=== PATIENT | male | born 1945 | race Caucasian/White ===

== ENCOUNTER → 2016-09-11 | Outpatient (CLI) | payer BC ==
[~2016-09-11] VITALS: Ht 162.6 cm; Wt 81.7 kg
[~2016-09-11] MED LIST: ATOR-22 PO; METO50TA16 PO; TRIA37.5 PO
[2016-09-11 13:56] VITALS: BP 143/97; PULSE 71; BMI 31.1
[2016-09-11 13:57] VITALS: BP 168/79; PULSE 84; Ht 162.6 cm; Wt 81.7 kg
== END | disposition home or self-care (01) ==
LOC: C.NEUR 12:53
PROVIDERS: ATTEND Internal Medicine Pulmonary Disease
DX: G47.33 Obstructive sleep apnea (adult) (pediatric) (principal); R51 Headache; M54.2 Cervicalgia

== ENCOUNTER → 2016-09-19 | Outpatient (CLI) | payer BC ==
--- NOTE | 2016-09-19 13:55 | DIAGNOSTIC IMAGING REPORT ---
C-SPINE ROUTINE 4 OR 5 VIEWS CLINICAL HISTORY: Neck pain. COMPARISON STUDY: No previous studies for comparison. FINDINGS: Visualization of the cervical spine is adequate. Alignment is anatomic. Vertebral body heights are maintained. There is no fracture or suspicious lesion. Mild multilevel degenerative disc disease and facet arthrosis is present. There is minimal multilevel bony neural foraminal narrowing. IMPRESSION: 1. No cervical spine fracture or subluxation. 2. Mild multilevel degenerative disc disease and facet arthrosis of the cervical spine. Electronically signed by: Christopher Patton M.D. 09/19/2016 1:53 PM Dictated Date/Time: 09/19/2016 1:52 PM
== END | disposition home or self-care (01) ==
LOC: C.RAD 13:03
PROVIDERS: ATTEND Internal Medicine
DX: M54.2 Cervicalgia (principal)

== ENCOUNTER → 2016-10-08 | Outpatient (CLI) | payer BC ==
[2016-10-08 14:10] LABS: BLOOD UREA NITROGEN 22 mg/dl (7-18); BUN/CREATININE RATIO 12.8 (10-20); CARBON DIOXIDE 27 mmol/L (21-32); CHLORIDE 106 mmol/L (98-107); CHOLESTEROL 154 mg/dl (0-200); GLUCOSE 90 mg/dl (70-99); POTASSIUM 4.3 mmol/L (3.5-5.1); SODIUM 143 mmol/L (136-145)
[2016-10-08 14:13] LABS: CHOLESTEROL/HDL RATIO 3.2; HDL CHOLESTEROL 48 mg/dl; TRIGLYCERIDES 116 mg/dl (0-150); VERY LOW DENSITY LIPOPROT CALC 23 mg/dl
== END | disposition home or self-care (01) ==
LOC: C.LABSPEC 12:44
PROVIDERS: ATTEND Internal Medicine
DX: I10 Essential (primary) hypertension (principal); E78.5 Hyperlipidemia, unspecified

== ENCOUNTER → 2016-10-22 | Outpatient (CLI) | payer BC | END | disposition home or self-care (01) | LOC: C.LABSPEC 12:21 | PROVIDERS: ATTEND Internal Medicine | DX: Z12.11 Encounter for screening for malignant neoplasm of colon (principal) ==

== ENCOUNTER → 2016-12-04 | Outpatient (CLI) | payer BC ==
[~2016-12-04] VITALS: Ht 162.6 cm; Wt 82.7 kg
[2016-12-04 13:23] VITALS: BP 146/75; PULSE 71; Ht 162.6 cm; Wt 82.7 kg
== END | disposition home or self-care (01) ==
LOC: C.NEUR 12:45
PROVIDERS: ATTEND Internal Medicine Pulmonary Disease
DX: G47.33 Obstructive sleep apnea (adult) (pediatric) (principal); M47.812 Spondylosis without myelopathy or radiculopathy, cervical region

== ENCOUNTER → 2017-04-09 | Outpatient (CLI) | payer BC ==
[2017-04-09 15:33] LABS: BLOOD UREA NITROGEN 21 mg/dl (7-18); BUN/CREATININE RATIO 15.1 (10-20); CALCIUM 9.5 mg/dl (8.5-10.1); CARBON DIOXIDE 30 mmol/L (21-32); CHLORIDE 107 mmol/L (98-107); GLUCOSE 91 mg/dl (70-99); POTASSIUM 4.7 mmol/L (3.5-5.1); SODIUM 140 mmol/L (136-145)
[2017-04-09 15:38] LABS: CHOLESTEROL 143 mg/dl (0-200); CHOLESTEROL/HDL RATIO 3.3; HDL CHOLESTEROL 43 mg/dl; TRIGLYCERIDES 116 mg/dl (0-150); VERY LOW DENSITY LIPOPROT CALC 23 mg/dl
== END | disposition home or self-care (01) ==
LOC: C.LABSPEC 12:19
PROVIDERS: ATTEND Internal Medicine
DX: I12.9 Hypertensive chronic kidney disease with stage 1 through stage 4 chronic kidney disease, or unspecified chronic kidney disease (principal); N18.9 Chronic kidney disease, unspecified; E78.5 Hyperlipidemia, unspecified

== ENCOUNTER → 2017-06-04 | Outpatient (CLI) | payer BC ==
[~2017-06-04] VITALS: Ht 162.6 cm; Wt 79.9 kg
[2017-06-04 14:15] VITALS: BP 155/76; PULSE 69; Ht 162.6 cm; Wt 79.9 kg
== END | disposition home or self-care (01) ==
LOC: C.NEUR 12:12
PROVIDERS: ATTEND Internal Medicine Pulmonary Disease
DX: G47.33 Obstructive sleep apnea (adult) (pediatric) (principal); I10 Essential (primary) hypertension

== ENCOUNTER → 2017-10-01 | Outpatient (CLI) | payer BC | END | disposition home or self-care (01) | LOC: C.PATHSPEC 16:35 | PROVIDERS: ATTEND Physician Assistant | DX: L82.1 Other seborrheic keratosis (principal) ==

== ENCOUNTER → 2017-10-14 | Outpatient (CLI) | payer BC ==
[2017-10-14 13:35] LABS: BASO ABS # 0.08 K/uL (0-0.2); EOS % 3.7 %; HEMATOCRIT 41.7 % (42-52); HEMOGLOBIN 13.4 g/dL (14.0-18.0); IG# 0.02 K/uL (0.00-0.02); LYMPH ABS # 2.26 K/uL (1.2-3.4); MEAN CELL VOLUME 87.1 fL (80-100); MEAN CORPUSCULAR HGB CONC 32.1 g/dl (32-36); MEAN PLATELET VOLUME 12.1 fL (7.4-10.4); MONO % 9.7 %; MONO ABS # 0.78 K/uL (0.11-0.59); NEUT % 57.4 %; NEUT ABS # 4.63 K/uL (1.4-6.5); PLATELET COUNT 246 K/uL (130-400); RED CELL DISTRIBUTION WIDTH CV 13.4 % (11.5-14.5); RED CELL DISTRIBUTION WIDTH SD 42.5 fL (36.4-46.3); WHITE BLOOD COUNT 8.07 K/uL (4.8-10.8)
[2017-10-14 14:02] LABS: ALBUMIN 3.8 gm/dl (3.4-5.0); ALT/SGPT 18 U/L (12-78); AST/SGOT 15 U/L (15-37); BLOOD UREA NITROGEN 19 mg/dl (7-18); CALCIUM 9.4 mg/dl (8.5-10.1); CARBON DIOXIDE 28 mmol/L (21-32); CHOLESTEROL 139 mg/dl (0-200); CREATININE 1.59 mg/dl (0.60-1.40); GLUCOSE 92 mg/dl (70-99); POTASSIUM 4.3 mmol/L (3.5-5.1); SODIUM 139 mmol/L (136-145)
[2017-10-14 14:06] LABS: ALKALINE PHOSPHATASE 82 U/L (45-117); LDL CHOLESTEROL (DIRECT) 91 mg/dl; TOTAL PROTEIN 8.1 gm/dl (6.4-8.2)
== END | disposition home or self-care (01) ==
LOC: C.LABSPEC 12:53
PROVIDERS: ATTEND Internal Medicine
DX: I12.9 Hypertensive chronic kidney disease with stage 1 through stage 4 chronic kidney disease, or unspecified chronic kidney disease (principal); E78.5 Hyperlipidemia, unspecified; N18.9 Chronic kidney disease, unspecified; I49.3 Ventricular premature depolarization

== ENCOUNTER → 2017-10-25 | Outpatient (CLI) | payer BC ==
--- NOTE | 2017-10-25 15:46 | EXERCISE STRESS ECHO ---
*NOTICE TO RECEIVING REPUBLICAN AGENCY This information is strictly Confidential and protected under [place] law. [place] law prohibits you from making any further disclosure of this information unless further disclosure is expressly permitted by the written consent of the person to whom it pertains or is authorized by law. A general authorization for the release of medical or other information is not sufficient for this purpose. Hospital accepts no responsibility if the information is made available to any other person, INCLUDING THE PATIENT. Interpretation Summary * Name: Marline ABBASI Study Date: 10/25/2017 11:29 AM BP: 173/86 mmHg * Patient Location: [facility] HR: 74 * : 1945 (M/d/yyyy) Gender: Male Height: 64 in * Age: 72 yrs Ethnicity: CA Weight: 177 lb * Ordering Physician: Elder Chung * Referring Physician: Elder Chung * Performed By: Jacqueline Burns RDCS * * Reason For Study: Abnormal EKG, chest pain * BSA: 1.9 m2 * -- Conclusions -- * Stress Echo: * 1. Negative stress echo for ischemia at 96 % MPHR. * 2. Negative exercise ECG for ischemia at 96 % MPHR. * 3. Hypertensive blood pressure response to exercise. * 4. QRS transiently became wider following exercise. * 5. There was a brief run of wide complex tachycardia which appeared to be SVT which spontaneously converted. This occurred in recovery. * 6. Study terminated due to hypertension. No chest pain reported. * 7. Exercised 3 minutes and 30 seconds on Sreedhar protocol as exercise was terminated due to hypertension. * ECHO: * 1. Normal left ventricular size and systolic function. EF 60-65%. No regional wall motion abnormalities. No left ventricular hypertrophy. Type 1 diastolic dysfunction. * 2. No significant valvular abnormalities. Procedure Details * ECHOEX, CPT #[id number] * ECHO DOPPLER, CPT #[id number] * ECHO COLOR FLOW, CPT #[id number] Left Ventricle * The left ventricle is normal in size. * There is normal left ventricular wall thickness. * Ejection Fraction = 60-65%. * Resting wall motion: Normal. Stress wall motion: Appropriate increase in Left ventricular systolic function and decrease in cavity size. No stress induced segmental wall motion abnormalities. * The left ventricular ejection fraction increases normally with stress. The left ventricular end-systolic cavity size reduces post-stress (normal response). The left ventricular wall motion with stress is normal. Right Ventricle * The right ventricle is normal in size and function. * The right ventricular systolic function is normal as assessed by tricuspid annular plane systolic excursion (TAPSE) (normal >1.5 cm). Atria * The left atrial size is normal. * Right atrial size is normal. * There is no evidence of atrial septal defect, but resolution does not allow assessment for a patent foramen ovale. Mitral Valve * The mitral valve is grossly normal. * There is no mitral valve stenosis. * There is trace mitral regurgitation. Tricuspid Valve * The tricuspid valve is not well visualized, but is grossly normal. * There is no tricuspid stenosis. * There is mild tricuspid regurgitation. Aortic Valve * The aortic valve is normal in structure and function. * No hemodynamically significant valvular aortic stenosis. * No aortic regurgitation is present. Pulmonic Valve * The pulmonary valve is inadequately visualized, but the Doppler data is adequate for interpretation. * There is no significant pulmonary regurgitation. Great Vessels * The aortic root is normal size. * Ascending aorta of normal dimension * Normal pulmonary venous flow pattern. Normal IVC size and inspiratory collapse. Pericardium * There is no pericardial effusion. Stress Parameters * Sinus rhythm at 73 bpm. Lateral T-wave abnormality. * There were no significant ST changes. QRS transiently became wider. There was a brief run of wide complex tachycardia which appears to be SVT with aberrant conduction. * The stress portion of this study was personally supervised by the undersigned interpreting physician. * Rest heart rate was '74' BPM. * Rest blood pressure was '173/86' * Maximum heart rate achieved was 141 bpm. * Maximum heart rate was 96 % of maximum age-predicted heart rate. * Maximum blood pressure was '216/80' * Total exercise time was '3:30' * Maximum exercise MET level achieved was '5.20' METS * Maximum treadmill speed was '2.50' miles per hour. * Maximum treadmill elevation was '12.00'% grade. * Exercise was terminated due to 'Hypertension' * Exercise-induced hypertension. MMode 2D Measurements and Calculations IVSd 1.1 cm LVIDd 4.8 cm LVIDs 3.3 cm LVPWd 0.99 cm IVS/LVPW 1.1 FS 31.2 % EDV(Teich) 107.8 ml ESV(Teich) 44.4 ml EF(Teich) 58.8 % EDV(cubed) 110.9 ml ESV(cubed) 36.2 ml EF(cubed) 67.4 % LV mass(C)d 180.6 grams LV mass(C)dI 97.2 grams/m\S\2 SV(Teich) 63.4 ml SI(Teich) 34.1 ml/m\S\2 SV(cubed) 74.8 ml SI(cubed) 40.3 ml/m\S\2 Ao root diam 3.0 cm Ao root area 7.1 cm\S\2 ACS 1.6 cm LA dimension 3.4 cm asc Aorta Diam 3.0 cm LA/Ao 1.1 LVOT diam 2.0 cm LVOT area 3.2 cm\S\2 LVAd ap4 31.0 cm\S\2 LVLd ap4 8.5 cm EDV(MOD-sp4) 91.4 ml EDV(sp4-el) 96.0 ml LVAs ap4 17.1 cm\S\2 LVLs ap4 7.0 cm ESV(MOD-sp4) 35.7 ml ESV(sp4-el) 35.2 ml EF(MOD-sp4) 60.9 % EF(sp4-el) 63.3 % LVAd ap2 27.3 cm\S\2 LVLd ap2 8.1 cm EDV(MOD-sp2) 74.8 ml EDV(sp2-el) 77.9 ml LVAs ap2 15.5 cm\S\2 LVLs ap2 7.0 cm ESV(MOD-sp2) 28.0 ml ESV(sp2-el) 29.1 ml EF(MOD-sp2) 62.6 % EF(sp2-el) 62.6 % LVLd %diff -4.58 % EDV(MOD-bp) 85.0 ml LVLs %diff -0.45 % ESV(MOD-bp) 31.2 ml EF(MOD-bp) 63.3 % SV(MOD-sp4) 55.7 ml SI(MOD-sp4) 30.0 ml/m\S\2 SV(MOD-sp2) 46.8 ml SI(MOD-sp2) 25.2 ml/m\S\2 SV(MOD-bp) 53.8 ml SI(MOD-bp) 29.0 ml/m\S\2 SV(sp4-el) 60.7 ml SI(sp4-el) 32.7 ml/m\S\2 SV(sp2-el) 48.7 ml SI(sp2-el) 26.3 ml/m\S\2 Doppler Measurements and Calculations MV E max nasir 68.2 cm/sec MV A max nasir 77.9 cm/sec MV E/A 0.88 MV dec time 0.17 sec Ao V2 max 128.6 cm/sec Ao max PG 6.6 mmHg Ao max PG (full) 2.9 mmHg JOLANTA(V,A) 2.4 cm\S\2 JOLANTA(V,D) 2.4 cm\S\2 LV V1 max PG 3.8 mmHg LV V1 max 96.8 cm/sec PA V2 max 110.4 cm/sec PA max PG 4.9 mmHg PA acc slope 945.5 cm/sec\S\2 PA acc time 0.08 sec TR max nasir 228.7 cm/sec RVSP(TR) 24.0 mmHg RAP systole 3.0 mmHg PA pr(Accel) 43.6 mmHg
== END | disposition home or self-care (01) ==
LOC: C.CPL 11:10
PROVIDERS: ATTEND Internal Medicine
DX: R07.9 Chest pain, unspecified (principal); R94.31 Abnormal electrocardiogram [ECG] [EKG]

== ENCOUNTER → 2017-11-06 | Outpatient (CLI) | payer BC ==
[2017-11-13 14:44] LABS: FECAL OCCULT BLOOD #1 NEGATIVE (NEGATIVE); FECAL OCCULT BLOOD #2 NEGATIVE (NEGATIVE); FECAL OCCULT BLOOD #3 NEGATIVE (NEGATIVE)
== END | disposition home or self-care (01) ==
LOC: C.LABSPEC 14:26
PROVIDERS: ATTEND Internal Medicine
DX: Z12.11 Encounter for screening for malignant neoplasm of colon (principal)

== ENCOUNTER → 2018-04-14 | Outpatient (CLI) | payer BC ==
[2018-04-14 14:19] LABS: ALBUMIN 3.6 gm/dl (3.4-5.0); ALKALINE PHOSPHATASE 88 U/L (45-117); ALT/SGPT 18 U/L (12-78); AST/SGOT 19 U/L (15-37); BLOOD UREA NITROGEN 22 mg/dl (7-18); CARBON DIOXIDE 27 mmol/L (21-32); CHOLESTEROL 152 mg/dl (0-200); CREATININE 1.54 mg/dl (0.60-1.40); GLUCOSE 86 mg/dl (70-99); LDL CHOLESTEROL (DIRECT) 90 mg/dl; PHOSPHORUS 3.1 mg/dl (2.5-4.9); POTASSIUM 4.1 mmol/L (3.5-5.1); SODIUM 138 mmol/L (136-145); TOTAL PROTEIN 7.8 gm/dl (6.4-8.2)
[2018-04-14 18:57] LABS: BASO % 0.9 %; BASO ABS # 0.07 K/uL (0-0.2); EOS % 3.7 %; EOS ABS # 0.28 K/uL (0-0.5); HEMATOCRIT 39.9 % (42-52); HEMOGLOBIN 12.7 g/dL (14.0-18.0); IG# 0.01 K/uL (0.00-0.02); LYMPH % 23.4 %; LYMPH ABS # 1.76 K/uL (1.2-3.4); MEAN CELL VOLUME 87.9 fL (80-100); MEAN CORPUSCULAR HGB CONC 31.8 g/dl (32-36); MONO % 9.7 %; MONO ABS # 0.73 K/uL (0.11-0.59); NEUT % 62.2 %; NEUT ABS # 4.67 K/uL (1.4-6.5); PLATELET COUNT 235 K/uL (130-400); RED CELL DISTRIBUTION WIDTH CV 13.6 % (11.5-14.5); RED CELL DISTRIBUTION WIDTH SD 43.1 fL (36.4-46.3); WHITE BLOOD COUNT 7.52 K/uL (4.8-10.8)
== END | disposition home or self-care (01) ==
LOC: C.LABSPEC 13:20
PROVIDERS: ATTEND Internal Medicine
DX: N18.9 Chronic kidney disease, unspecified (principal); I12.9 Hypertensive chronic kidney disease with stage 1 through stage 4 chronic kidney disease, or unspecified chronic kidney disease; E78.5 Hyperlipidemia, unspecified

== ENCOUNTER 2022-09-17 09:26 | Inpatient (IN) ==
--- NOTE | 2022-09-13 09:53 | PAT Medication Instructions ---
Medication Instructions Date of Service September 13, 2022 Home Medications amlodipine 5 mg tablet 5 mg PO QAM atorvastatin 20 mg tablet 20 mg PO HS cyanocobalamin (vitamin B-12) 1,000 mcg tablet 1,000 mcg PO QAM ascorbate calcium-bioflavonoid ER 1,000 mg-200 mg tab,extended release 1 tab PO QAM coenzyme Q10 100 mg capsule (Co Q-10) 100 mg PO QAM STOP taking 2 weeks before surgery (or as soon as possible if surgery is within 2 weeks) coenzyme Q10 100 mg capsule (Co Q-10) 100 mg PO QAM DO NOT take the morning of surgery cyanocobalamin (vitamin B-12) 1,000 mcg tablet 1,000 mcg PO QAM ascorbate calcium-bioflavonoid ER 1,000 mg-200 mg tab,extended release 1 tab PO QAM Take morning of surgery With a small sip of water, OTHERWISE NOTHING TO EAT OR DRINK AFTER MIDNIGHT: amlodipine 5 mg tablet 5 mg PO QAM Take evening before surgery atorvastatin 20 mg tablet 20 mg PO HS Other Notes If you have any questions please call us at [phone] or [phone] or [phone] or [phone]
--- NOTE | 2022-09-13 14:47 | Anesthesiology Consultation ---
Date of Service September 13, 2022 Assessment & Plan (1) Encounter for pre-operative examination: - COVID screening: Per assessment on 09/12: No known COVID-19 positive contacts or current COVID-19 related symptoms. Travel screen negative. Patient vaccinated. Pt requiring admission post-operatively. Plan for recheck with COVID Rand AM DOS due to possibility that patient may have a roommate. OR aware. Rand order placed. - S/P Right ankle ORIF (08/30/20): LMA#5 + PNB at [facility]. "in bigeminy PVCs and PVCs are non-perfusing per pulse ox- rate on pulse ox = 34.. 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 He has never taken any medication for this. At this point, given that he is 76 years old and has never had an arrhythmia with his WPW pattern, it is very unlikely that he will have 1 now. However, given that his blood pressure allows room for it and his frequent PVCs during his echocardiogram, I will have him start metoprolol succinate 25 mg at night.. I reviewed his past BMPs. It appears that he had stable chronic kidney disease with a creatinine of around 1.7 for at least 3 years. When he is through his surgery, we could further adjust his antihypertensive regimen.. He has an echocardiogram pending. He can achieve 4 METS. He has never had any concerning anginal symptoms. He appears euvolemic. He has no history of heart failure. He does not require further cardiac testing prior to his procedure. EKG was p erformed in the office today which shows normal sinus rhythm with WPW pattern and a wide QRS.. Using the NSQIP calculator, he is below average risk for cardiac complication, around 1%. I also discussed with him that his surgery is urgent and the risk of such a large aneurysm rupturing requires urgent intervention." Echo done 09/12/12 unremarkable. Chart Review Chart Review: Acceptable Risk for Surgery and Patient seen in Pre Admission Testing Teaching & Discussion Pre-Anesthesia Teaching/Discussion Notes: Instructed NPO after midnight before surgery,except medications with 15 cc of water. Medication instructions provided according to the PAT guidelines. History Surgery Operation Date: 09/17/22 11:00 Proposed Procedures p Percutaneous Endovascular Abdominal Aortic Aneurysm Repair (PEVAR) - Richard Morales MD Height/Weight Height: 5 ft 4 in Weight: 82.7 kg Allergies Allergy/AdvReac Type Severity Reaction Status Date / Time No Known Allergies Allergy Verified 09/12/22 14:43 Medications Home Medications Medication Instructions Recorded Confirmed Last Taken amlodipine 5 mg tablet 5 mg PO QAM #30 tabs 05/20/19 09/12/22 08/29/20 atorvastatin 20 mg tablet 20 mg PO HS 05/20/19 09/12/22 08/29/20 cyanocobalamin (vitamin B-12) 1,000 mcg PO QAM 05/20/19 09/12/22 08/29/20 1,000 mcg tablet ascorbate calcium-bioflavonoid ER 1 tab PO QAM 09/11/22 09/12/22 Unknown 1,000 mg-200 mg tab,extended release coenzyme Q10 100 mg capsule (Co 100 mg PO QAM 09/11/22 09/12/22 Unknown Q-10) metoprolol succinate 25 mg 25 mg PO DAILY 09/14/22 09/14/22 Unknown tablet,extended release 24 hr Past Medical History Medical History Aneurysm of abdominal aorta Infrarenal aortic aneurysm 74 mm per 09/11/22 CTA Chronic kidney disease Hearing deficit BL FOREMAN HTN (hypertension) Hyperlipemia Nocturnal hypoxemia Per records Sleep apnea CPAP (occasional) WPW (Viati-Jyelkibaa-Uvtxx syndrome) Noted on 05/2022 EKG, Follows with Dr. Land Exercise / Class Metabolic Activity III < 4 Walking/Shop/Light housework Past Family History Family History Mother Diabetes Other Cancer No family history of adverse response to anesthesia Past Surgical History Surgical History History of appendectomy removed at same time as gallbladder History of cataract surgery R/L History of cholecystectomy History of colonoscopy Past Anesthesia History No Hx of Anesthesia Complications and No Family Hx of Anesthesia Complications History of PONV No Hx of PONV and No Hx of Motion Sickness Social History Smoking Status: Former smoker tobacco type: cigarettes Do You Dip or Chew Tobacco: No Smoking End Date: Quit 35 years ago Hx Alcohol Use: No Hx Substance Use: No substance use type: does not use Review of Systems Patient denies chest pain, shortness of breath, dyspnea on exertion, fever, chills, cough, wheezing, palpitations. Physical Exam Vital Signs VITALS BP 15-88 P 69 TEMP 98.0 SP02 96%RA RESP 16 PHYSICAL Full cervical extension range of motion. Full TMJ range of motion. TMD 3 finger breaths Mallampati Score 3 Dentition: full dentures upper/lower Lungs: clear throughout to auscultation Cardiac: regular rate and rhythm, no murmurs noted Spine: normal Carotid arteries: negative bruit Extremities: no edema Lab Results Anesthesia Preop Results Results Anesthesia Widget: WBC 7.86 K/ul (4.8-10.8) 09/14/22 Hgb 12.0 g/dl (14.0-18.0) L 09/14/22 Hct 36.7 % (40.1-51.0) L 09/14/22 Plt 271 K/uL (130-400) 09/14/22 Na 138 mmol/L (136-145) 09/14/22 K 4.3 mmol/L (3.5-5.1) 09/14/22 Cl 103 mmol/L (98-107) 09/14/22 CO2 30 mmol/L (21-32) 09/14/22 BUN 21 mg/dl (6-23) 09/14/22 Creat 1.53 mg/dl (0.6-1.4) H 09/14/22 Glucose Level 92 mg/dl (70-99(Fasting)) 09/14/22 PT 10.7 Seconds (9.0-12.0) 09/14/22 PTT 35.6 Seconds (21.0-31.0) H 09/14/22 INR 1.0 (0.9-1.1) 09/14/22 Blood Type O Positive 09/14/22 Antibody Screen NEGATIVE 09/14/22 Testing Laboratory Results 08/22/22 SODIUM 144 POTASSIUM 4.1 CHLORIDE 108 CO2 30 BUN 21 CREATININE 1.65 GLUCOSE 104 Electrocardiogram Date: 09/12/22 NSR at 86bpm. WPW. LAFB. Prolonged QTc. NS STA. Chest X-Ray Date: 09/14/22 FINDINGS: Mild bilateral hilar prominence is similar to the prior study. Possible pulmonary arterial hypertension with cardiomegaly. Unchanged right hemidiaphragmatic elevation. No pneumothorax, large pleural effusion or lobar airspace consolidation. Mild interstitial coarsening appears chronic. Degenerative changes of the shoulders and spine. IMPRESSION: No acute process. Echocardiogram Date: 09/12/22 EF 55-60%. No RWMA. Grade I DD. Ventricular dyssynchrony is seen secondary to the patient's known preexcitation. Mild MR. Trce to mild TR. Other Testing CTA Abdomen/Pelvis (09/11/22) Infrarenal aortic aneurysm as above measuring 74 mm. A tiny, likely chronic dissection flap is noted in the superior aspect of this aneurysm. A linear focus of radiodensity is seen in the left neural thrombus of the aneurysm. There is evidence of scattered atherosclerotic calcifications of the abdominal aorta and its major branches. Radiodensity in the left wall likely represents chronic calcification rather than endoleak given the absence of a feeding vessel. However, if clinical concern remains, a triple phase CT can be performed. Additional findings as above. COVID-19 Risk Screen Screening Information COVID-19 Screen Date: 09/14/22 Exposure 21 Days Family/Household +COVID Last 21 Days: No Exposure 10 Days Any COVID Exposure Last 10 Days: No Symptoms Last 10 Days Experienced COVID Sx Last 10 Days: No + COVID 0-90 Days COVID + in Last 0-90 Days: No
--- NOTE | 2022-09-16 13:19 | History & Physical Report ---
Date of Service September 16, 2022 History of Present Illness Primary Care Provider: Elder Mcrae MD Name: Marline ROBERSON Patient Number: [id number] : 1945 Date of Service: 09/12/2022 Chief Complaint: _New patient consultation regarding AAA HPI: _Mr. Roberson is an elderly male who presents to Dr. Morales's vascular surgery clinic today as a new patient in consultation for an incidentally noted infrarenal abdominal aortic aneurysm. Patient states that his primary care physician retired and he recently switched care to [facility]. He was complaining about some left hip pain, and his new PCP ordered a hip x-ray, which demonstrated a possible infrarenal aneurysm. He was then sent for a CTA to further evaluate. Patient states he had no prior knowledge of this aneurysm, and has no known family history. He is a prior smoker, but states he has not smoked in 30 years. He denies any significant complaints at this time. He specifically denies headache, fever, chest pain, dizziness, shortness of breath, abdominal pain, nausea, vomiting, rest pain, claudication, nonhealing wounds or ulcers, other complaints. Of note the patient is pretty active and fully independent. Review of systems: Total of 14 systems were reviewed and are negative aside from what is related in his HPI Imaging: A CTA of the abdomen and pelvis performed at [facility] on 09/11/2022 demonstrates an infrarenal abdominal aortic aneurysm measuring 7.4 cm in its largest diameter. Current Home Meds: (Last Updated 09/12 08:03) amLODIPine (amLODIPine 5 mg oral tablet) 5 mg PO Daily ascorbic acid (Vitamin C) 1,000 mg Daily atorvastatin (atorvastatin 20 mg oral tablet) 20 mg PO qhs cyanocobalamin (Vitamin B12) 1,000 mcg Daily multivitamin with minerals (Centrum Silver Men's) Daily ubiquinone (Co Q-10) Allergies and Sensitivities: NKA Past Medical History: Problems: AAA (abdominal aortic aneurysm) WPW (Zqisd-Btfmfwvjx-Ekdbh syndrome) Vertigo Elevated cholesterol Benign hypertension History of basal cell carcinoma of skin History of seborrheic keratosis Apnea, sleep Surgical history: Positive for cholecystectomy/appendectomy in the 1970s, Mohs surgery, ORIF of right ankle Family history: Positive for mother with diabetes mellitus, [place]. Father and brother both with myocardial infarction. Social history: Patient is a retired manufacturing, and is and lives at home with his . He is a former smoker, having smoked 1 pack a day and quit 30 years ago. OBJECTIVE Vitals: Last Updated 09/12/22 08:07 Date Temp BP Location Pulse RR SpO2 Pain 09/12/22 150/72 Right Arm 09/12/22 154/72 Left Arm 96 97 09/12/22 0 Vital Signs are the last 3 documented. No Orthostatic Data Available Height and Weight: Last Updated 09/12/22 08:06 Date BMI Wt(kg) Wt(lb) Method Ht(cm) (ft-in) Method 09/12/22 82.4 181 Standing Scale 08/21/22 30.08 80.4 177 Standing Scale 163.5 5-4 05/08/22 30.67 79.5 175 Standing Scale 161.0 5-3 Heights and Weights are the last 3 documented. Physical Exam Constitutional: In general patient is a healthy-appearing well-nourished well- developed elderly male in no distress. He is alert and oriented without any focal deficits. He is mildly hard of hearing but has have a hearing aid in. His head is normocephalic and atraumatic. His eyes are EOMI. His neck is supple nontender with midline trachea. He does not have carotid bruit. His heart is regular with PVCs noted. His lungs are decreased slightly but clear throughout. His abdomen is soft and nontender with normoactive bowel sounds. He does have a large pulsatile mass consistent with his aneurysm. His brachial radial and femoral pulses are +3. His lower extremity distal pulses are +2. He has brisk capillary fill and no sign of distal ischemia. He does have trace edema at the ankles. ASSESSMENT: _ PLAN: _ 1 ) _abdominal aortic aneurysm, 7.4 cm Patient does have a large infrarenal abdominal aortic aneurysm. Review of his CTA with Dr. Morales does indicate that the patient would be a candidate for endovascular repair. Both open and endovascular repair were discussed with the patient. He elected to proceed with an endovascular abdominal aortic aneurysm repair. The procedure risks benefits and alternatives were discussed with the patient by myself at Dr. Morales's request. Patient expressed understanding and agreement to proceed. Patient will undergo cardiac clearance and echocardiogram prior to his procedure due to his history of Yftcw-Cghbwegjk-Wzyli. Patient was in the office today with his and his son as well. All of their questions were answered to their satisfaction. They were advised to call the office if they develop any other questions at a later date. They are in agreement to this plan. Thank you for letting us participate in the care of this patient. Signature Line Electronic Signature on File CC: Phi Pino MD [address] [address] CC: STEFAN Edwards [address] [address] Electronically Reviewed/Signed by: Constance Davison PA-C Author Signature Dt/Tm:09/12/2022 09:[address] [address] Electronically Reviewed/Signed by: MD Evelyn Robertsonignjudy Signature Dt/Tm: 09/12/2022 10:47 AM [employer] [place] [id number] LM Result Type: HVI Outpt Note Date of Service: September 12, 2022 09:17 EST Authorization Status: Final Author or Import Date: ROSAMARIA Davison, Constance on September 12, 2022 09:29 EST Verified By: MD Andrew, Richard Galindo on September 12, 2022 10:47 EST Encounter info: [id number], [place] [address], Clinic, 09/12/2022 - 09/12/2022 Allergies Allergy/AdvReac Type Severity Reaction Status Date / Time No Known Allergies Allergy Verified 09/12/22 14:43 Home Medications Medication Instructions Recorded Confirmed Type amlodipine 5 mg tablet 5 mg PO QAM #30 tabs 05/20/19 09/12/22 History atorvastatin 20 mg tablet 20 mg PO HS 05/20/19 09/12/22 History cyanocobalamin (vitamin B-12) 1,000 mcg PO QAM 05/20/19 09/12/22 History 1,000 mcg tablet ascorbate calcium-bioflavonoid ER 1 tab PO QAM 09/11/22 09/12/22 History 1,000 mg-200 mg tab,extended release coenzyme Q10 100 mg capsule (Co 100 mg PO QAM 09/11/22 09/12/22 History Q-10) metoprolol succinate 25 mg 25 mg PO DAILY 09/14/22 09/14/22 History tablet,extended release 24 hr Past Med/Surg History Medical History Aneurysm of abdominal aorta Infrarenal aortic aneurysm 74 mm per 09/11/22 CTA Chronic kidney disease Hearing deficit BL FOREMAN HTN (hypertension) Hyperlipemia Nocturnal hypoxemia Per records Sleep apnea CPAP (occasional) WPW (Jwhgx-Enxwerfjo-Ulkjt syndrome) Noted on 05/2022 EKG, Follows with Dr. Land Surgical History History of appendectomy removed at same time as gallbladder History of cataract surgery R/L History of cholecystectomy History of colonoscopy Family History Mother Diabetes Other Cancer No family history of adverse response to anesthesia Social History Smoking Status: Former smoker Second Hand Exposure: No; Hx Alcohol Use: No Hx Substance Use: No Preferred Language: Irish Communication Ability: Effective Core Paster Required: No Beliefs That Will Affect Care: None marital status: Current Living Situation: Spouse current occupational status: retired Feels Safe at Home: Yes Assistive Devices: CPAP, Denture - Upper, Denture - Lower, Glasses and Hearing Aid - Bilateral
[~2022-09-17 09:26] MED LIST changes: -ATOR-22 PO; +CEFAZOLIN 2,000 MG/15 ML SYR IV SCH; -METO50TA16 PO; -TRIA37.5 PO
[2022-09-17] MEDS: ceFAZolin 2,000 MG/15 ML IV PUSH IV ONE ×2 (10:25→12:12)
[2022-09-17] MEDS ORDERED: SODIUM CHLORIDE 0.9% 1000ML 1,000 ML IV SCH (10:30)
[2022-09-17 10:36] LABS: BUN Creatinine Ratio 14.1 (10-20); Calcium 9.5 mg/dl (8.5-10.1); Creatinine Clr Calc Pharmacy 37.9 ml/min; Est GFR (African American) 48.6 ml/min; Est GFR (Non-African American) 41.9 ml/min; Potassium 4.4 mmol/L (3.5-5.1)
[2022-09-17] MEDS ORDERED: ONDANSETRON INJ 2 MG/ML 2 ML VIAL ONE (10:43)
[2022-09-17] MEDS ORDERED: DEXAMETHASONE SOD INJ 4 MG/ML VIAL ONE (10:43)
[2022-09-17] MEDS ORDERED: GLYCOPYRROLATE 0.2 MG/ML VIAL ONE (10:43)
[2022-09-17] MEDS ORDERED: NEOSTIGMINE METHYLSULFATE 1 MG/ML 10ML VIAL ONE (10:43)
[2022-09-17] MEDS ORDERED: fentaNYL citrate 100 MCG/2 ML VIAL ONE (10:43)
[2022-09-17] MEDS ORDERED: PROPOFOL IV EMULSION 10 MG/ML 20 ML VIAL IV ONE (10:43)
[2022-09-17] MEDS ORDERED: LIDOCAINE 2% MPF LOCAL 5 ML VIAL INFIL ONE (10:44)
[2022-09-17] MEDS ORDERED: ROCURONIUM BROMIDE 10 MG/ML 5 ML VIAL IV ONE (10:44)
[2022-09-17] MEDS ORDERED: ATROPINE SULFATE 0.1 MG/ML 10ML SYR IV PRN (11:18)
[2022-09-17] MEDS ORDERED: PROMETHAZINE HCL 12.5 MG in SODIUM CHLORIDE 0.9% 50 ML IV PRN (11:18)
[2022-09-17] MEDS ORDERED: ONDANSETRON INJ 2 MG/ML 2 ML VIAL IV PRN ×2 (11:18→14:43)
[2022-09-17] MEDS ORDERED: ePHEDrine sulfate 50 MG/ML AMP IV PRN (11:18)
[2022-09-17] MEDS ORDERED: fentaNYL citrate 100 MCG/2 ML VIAL IV PRN (11:18)
[2022-09-17] MEDS ORDERED: HYDROmorphone INJ 2 MG/ML SYR/VIAL IV PRN (11:18)
--- NOTE | 2022-09-17 11:24 | History & Physical Bridge Note ---
Date of Service September 17, 2022 History & Physical Bridge Note I have examined the patient, reviewed the History & Physical and in the interval since the performance of the History & Physical I have noted the following changes of clinical significance: no changes noted
[2022-09-17] MEDS ORDERED: PHENYLEPHRINE HCL 10 MG/ML VIAL ONE (12:14)
[2022-09-17] MEDS ORDERED: HEPARIN SOD (PORCINE) 1000 UNIT/ML ONE (12:41)
[2022-09-17] MEDS ORDERED: ePHEDrine sulfate 50 MG/ML AMP ONE (12:44)
[2022-09-17] MEDS ORDERED: ARISTA ABSORBABLE HEMOSTAT 3GM TOP ONE (13:45)
[2022-09-17] MEDS ORDERED: VISIPAQUE IV PRN (13:46)
--- NOTE | 2022-09-17 13:47 | Post Operative Brief Note ---
Immediate Post Op Note v1 Date of Surgery September 17, 2022 Pre & Post Diagnosis Operation Date: 09/17/22 11:00 Pre-Op Diagnosis: Abdominal Aortic Aneursym Post-Op Diagnosis: Abdominal Aortic Aneursym I identified the patient and participated in the time-out.: Yes Procedure Operation Date: 09/17/22 11:00 Actual Procedures p Percutaneous Endovascular Abdominal Aortic Aneurysm Repair, Mechanical Closure of Bilateral Femoral Arteries(Bilateral) - Richard Morales MD Surgeon Richard Morales MD Regulatory Internship MD Ilana Estimated Blood Loss 50 Findings Consistent with Post-Op Diagnosis Drains Rodrigues Catheter Anesthesia Type General Complications none Disposition Accompanied Patient To Recovery: No Disposition: Recovery Room
--- NOTE | 2022-09-17 13:55 | Operative Report ---
Post Operative Report Pre & Post Diagnosis Operation Date: 09/17/22 11:00 Pre-Op Diagnosis: Abdominal Aortic Aneursym Post-Op Diagnosis: Abdominal Aortic Aneursym I identified the patient and participated in the time-out.: Yes Procedure Operation Date: 09/17/22 11:00 Actual Procedures p Percutaneous Endovascular Abdominal Aortic Aneurysm Repair, Mechanical Closure of Bilateral Femoral Arteries(Bilateral) - Richard Morales MD Surgeon Richard Morales MD Center Punch Operator Chuck Rosa MD Estimated Blood Loss 50 Findings Consistent with Post-Op Diagnosis Large infrarenal AAA excluded following device placement. Renal, bilateral common and external iliac arteries intact at completion. Small contrast extravasation at proximal graft improved following aortic cuff placement and balloon angioplasty. No type IA endoleak that fills aneurysm sac. Specimens None Drains None Indications Large 7cm infrarenal AAA Description of Procedure The patient was taken to the operating room suite and placed in the supine position. The abdomen, bilateral groins, and bilateral thigh was then prepped and draped in a sterile manner. Using ultrasound guidance, the right common femoral artery was found to be patent and accessed using micropuncture technique. Angled glide wire was then inserted. A small skin incision was made at the skin site of entry and subcutaneous tissue was dilated using a hemostat. A 8Fr Manta measuring device was inserted to dilate the artery and measure depth of 5cm. The measuring device was then exchanged for an 8Fr sheath over the wire. The wire was then exchanged for a [place]underquist wire. An 18Fr DrySeal sheath was then advanced into the infrarenal aorta under fluoroscopic imaging. Attention was then turned to the left groin where the left common femoral artery was found to be patent by ultrasound and accessed using micropuncture technique. An angled glide wire was then inserted. A small skin incision was made at the skin site of entry and subcutaneous tissue was dilated using a hemostat. A 8Fr Manta measuring device into the left common femoral artery over the angled glide wire, measuring a depth of 6cm. The measuring device was then exchanged for an 8Fr sheath over the wire. The wire was then exchanged for a Lunderquist wire. An 12Fr DrySeal sheath was then advanced into the infrarenal aorta under fluoroscopic imaging. On the right side, the main body device of the [place] Excluder, 32mm x 14.5 x 14cm was inserted into the 18 Fr sheath. This was advanced up the right side to the level of about L2. A pigtail catheter was advanced over the wire on the left, the wire was removed and the pigtail was connected to the power injector. An aortogram was taken and the level of the inferior origin of the bilateral renal arteries were marked. The main body device was deployed to the opening of the contralateral gate. From the left side, the pigtail catheter was exchanged for an angled catheter over an angled glide wire. The contralateral gate was cannulated using an angled glide wire. A pigtail was then advanced to the top of the graft on the left and an image was taken marking the origin of the common and internal iliac artery on the left. The sheath was then advanced into the gate with the dilator and the ipsilateral limb deployed. An appropriately sized 16mm x 18mm x11.5 mm [place] limb was then advanced and deployed. The proximal graft, origin of left limb at the flow divider, and the distal limb were then ballooned using hand insufflation. Attention was moved to the right side where an appropriately sized 16mm x 14.5mm x 10cm limb was deployed to extend the ipsilateral limb and then ballooned using hand insufflation. A completion angiogram was performed demonstrating a small amount of contrast extravasation at the proximal portion of the graft that did not fill the aneurysm sac. The decision was then made to place an aortic cuff measuring 32mm x 4.5cm from the right sided access just above the proximal end point of the main body. This was ballooned with hand insufflation. Completion angiogram demonstrated improvement with decreased contrast extrav at the proximal portion of the graft with no filling of the aneurysm sac. Just below this there was complete seal of the graft to the aortic wall. No Type II or type III endoleak. Bilateral renal arteries and internal iliac arteries patent with brisk filling. The right DrySeal sheath was exchanged for the 18Fr Manta device. The Manta was deployed. Adequate hemostasis was obtained. Angiography following deployment showed intact STOVE MOUNTER, SFA and profunda on the right without contrast extravasation. Pressure was held. The left DrySeal sheath was exchanged for the 14Fr Manta device. The Manta was deployed. Adequate hemostasis was obtained. Pressure was held. Patient was extubated and taken to the PACU in stable condition. A total of 12.2min of fluoroscopy time, 586 mGy and 80cc contrast used for the duration of the case. The patient left the operation room in satisfactory condition and tolerated the procedure well. All needle and sponge counts were correct at the end of the procedure. Dr. Morales was present and scrubbed for the entire procedure. I attest to the content of the Intraoperative Record and any orders documented therein. Any exceptions are noted below. Supervising Physician Co-Signing Physician Notes Richard Morales MD
[2022-09-17 14:28] LABS: Hematocrit (blood only) 33.6 % (40.1-51.0); Hemoglobin 10.8 g/dl (14.0-18.0)
[2022-09-17] MEDS ORDERED: oxyCODONE/ACETAMINOPHEN 5mg/325mg TAB PO PRN (14:43)
[2022-09-17] MEDS ORDERED: MoRPHine SULFATE 4 MG/ML 1 ML CARP\\VIAL IV PRN (14:43)
--- NOTE | 2022-09-17 15:10 | Critical Care Consultation ---
Date of Consultation September 17, 2022 Assessment & Plan (1) Encounter for postoperative care: Pt is a 76 yo male with PMH of WPW, HLD, CKD, and HTN presenting to the hospital for percutaneous endovascular repair of a 7.4 cm infrarenal AAA. Pt is s/p PEVAR. Infrarenal AAA s/p PEVAR - w/o immediate complications - continue to monitor in ICU for 24 hours WPW - diagnosed 05/2022, follows with Dr. Land - will resume home metoprolol 25 mg daily tomorrow AM HLD - will resume home atorvastatin 20 mg tonight HTN - most recent BP in 120s-130s - will resume home amlodipine 5 mg tomorrow AM w/ metoprolol (2) Aneurysm of abdominal aorta: (3) HTN (hypertension): (4) Chronic kidney disease: (5) WPW (Xqpbq-Nbdbxnyjl-Ddaud syndrome): Plan Fluids: D5W w/ 1/2 NS at 125 mL/hr Diet: heart healthy Code: full DVT ppx: SCDs Dispo: monitor in ICU, plan to d/c tomorrow pending recovery Supervising Physician Co-Signing Physician Notes Dr. Cowart was resident physician during care of patient. I separately evaluated patient for quintana portions of the history and the exam. I was present during the critical portion of medical decision making, and I discussed the case with the resident. I generally agree with the findings and plan. History of Present Illness Reason for Consultation: post PEVAR Requesting Physician: Richard Morales MD Attending Physician: Richard Morales MD History of Present Illness Pt is a 76 yo male with PMH of WPW, HLD, CKD, and HTN presenting to the hospital for percutaneous endovascular repair of a 7.4 cm infrarenal AAA. Pt is s/p PEVAR. Pt states he is feeling well. and son at bedside. Pt denies no new pains, "just the pains that have always been there." Pt denies chest pain, SOB, abdominal pain, pain the the surgical site, and leg pains. Medical, family, and surgical history reviewed and updated. No allergies. Allergies Allergy/AdvReac Type Severity Reaction Status Date / Time No Known Allergies Allergy Verified 09/17/22 09:43 Home Medications Medication Instructions Recorded Confirmed Type amlodipine 5 mg tablet 5 mg PO QAM #30 tabs 09/18/19 01/16/23 History atorvastatin 20 mg tablet 20 mg PO HS 05/20/19 09/17/22 History cyanocobalamin (vitamin B-12) 1,000 mcg PO QAM 05/20/19 09/17/22 History 1,000 mcg tablet ascorbate calcium-bioflavonoid ER 1 tab PO QAM 09/11/22 09/17/22 History 1,000 mg-200 mg tab,extended release coenzyme Q10 100 mg capsule (Co 100 mg PO QAM 09/11/22 09/17/22 History Q-10) metoprolol succinate 25 mg 25 mg PO DAILY 09/14/22 09/17/22 History tablet,extended release 24 hr oxycodone-acetaminophen 5 mg-325 1 tab PO Q6H PRN pain #20 tabs 09/18/22 Rx mg tablet (Percocet) Patient History Medical History Aneurysm of abdominal aorta Infrarenal aortic aneurysm 74 mm per 09/11/22 CTA Chronic kidney disease Hearing deficit BL FOREMAN HTN (hypertension) Hyperlipemia Nocturnal hypoxemia Per records Sleep apnea CPAP (occasional) WPW (Fdisg-Kgsmxvnsy-Hvypv syndrome) Noted on 05/2022 EKG, Follows with Dr. Land Surgical History History of appendectomy removed at same time as gallbladder History of cataract surgery R/L History of cholecystectomy History of colonoscopy Family History Mother Diabetes Myocardial infarction Son Cancer Father Myocardial infarction Brother Myocardial infarction Other No family history of adverse response to anesthesia Social History Smoking Status: Former smoker Smoking End Date: Quit 35 years ago; Second Hand Exposure: No; Do You Dip or Chew Tobacco: No; Tobacco Cessation Education Requested by Patient: No Hx Alcohol Use: No Hx Substance Use: No Preferred Language: [place] Irish Communication Ability: Effective Fiber Optic Assembly Worker Required: No Beliefs That Will Affect Care: None marital status: Current Living Situation: Spouse current occupational status: retired Other Information That Helps Us Care for You: No Feels Safe at Home: Yes Safety Concerns: Feels Safe At This Time Assistive Devices: CPAP, Denture - Upper, Denture - Lower, Glasses and Hearing Aid - Bilateral Assistive Devices Comment: glasses for reading Review of Systems Review of Systems: All systems reviewed & are unremarkable except as noted in Subjective Physical Exam Constitutional: NAD. Vitals WNL. Currently using 2L NC w/ oxygen sat in the 90s. Neck: No thyromegaly. Trachea midline. Respiratory: CTA bilaterally. No rhonchi, wheezing, or crackles. Non labored breathing. Cardiovascular: RRR. No murmur noted. No LE edema. Gastrointestinal (Abdomen): +BS. Non tender throughout all 4 quadrants. No masses noted. Psychiatric: Alert. Mood and affect congruent. Results & Data Results & Data ([facility]) Vital Signs (Past 12 Hours) Vital Signs Temp Pulse Pulse Resp BP Pulse Ox O2 Del Method 09/17/22 14:30 36.4 C L 72 14 125/68 97 Nasal Cannula 09/17/22 14:20 75 13 135/68 97 Nasal Cannula 09/17/22 14:10 82 12 122/66 94 Nasal Cannula 09/17/22 14:01 36.1 C L 85 20 123/71 97 Oxymask 09/17/22 09:47 37.0 C 89 18 156/73 H 98 Room Air O2 Flow Rate 09/17/22 14:30 2 09/17/22 14:20 2 09/17/22 14:10 2 09/17/22 14:01 4 09/17/22 09:47 Resident Activity Tracking Resident Involvement: Resident Care Provided Care Provided: Adult Hospital Medicine
--- NOTE | 2022-09-17 15:22 | Anesthesiology Progress Note ---
Date of Service September 17, 2022 Anesthesia Post Procedure Vital Signs Vital Signs: Temp Pulse Pulse Resp BP Pulse Ox O2 Del Method 09/17/22 14:30 36.4 C L 72 14 125/68 97 Nasal Cannula 09/17/22 14:20 75 13 135/68 97 Nasal Cannula 09/17/22 14:10 82 12 122/66 94 Nasal Cannula 09/17/22 14:01 36.1 C L 85 20 123/71 97 Oxymask 09/17/22 09:47 37.0 C 89 18 156/73 H 98 Room Air O2 Flow Rate 09/17/22 14:30 2 09/17/22 14:20 2 09/17/22 14:10 2 09/17/22 14:01 4 09/17/22 09:47 Transfer of Care Handoff Completed per policy Notes Mental Status: alert / awake / arousable Patient Amnestic to Procedure: Yes Nausea / Vomiting: adequately controlled Pain: adequately controlled Airway Patency, RR, SpO2: stable & adequate BP & HR: stable & adequate Hydration State: stable & adequate Anesthetic Complications: no major complications apparent
[2022-09-17] MEDS: D5W AND 1/2NSS 1,000 ML IV SCH ×2 (15:47→22:34)
[2022-09-17] MEDS: ICU Protocol for HYPERglycemia SCH ×2 (16:02→20:46)
[2022-09-17] MEDS ORDERED: COUGH DROP (SUGAR FREE) LOZ 24 LOZ/1 BOX BUCCAL PRN (18:37)
[2022-09-17] MEDS ORDERED: GLUCOSE 40% GEL 15 GM TUBE PO PRN (20:36)
[2022-09-17] MEDS ORDERED: CARBOHYDRATES FOR HYPOGLYCEMIA PO PRN (20:36)
[2022-09-17] MEDS ORDERED: GLUCOSE 10 TAB/TUBE PO PRN (20:36)
[2022-09-17] MEDS ORDERED: GLUCAGON FOR INJ 1 MG VIAL SQ PRN (20:36)
[2022-09-17] MEDS ORDERED: DEXTROSE 50% 50 ML SYRINGE IV PRN (20:36)
[2022-09-17] MEDS: ceFAZolin 2000MG 2,000 MG/15 ML SYR IV SCH (20:40)
[2022-09-17] MEDS: INSULIN ASPART PER UNIT SC SCH (20:50)
[2022-09-17] MEDS ORDERED: ATORVASTATIN 20 MG TAB PO SCH (21:00)
[2022-09-18 04:15] LABS: Basophils # (auto) 0.04 K/uL (0-0.2); Basophils % (auto) 0.3 %; Hematocrit (blood only) 32.1 % (40.1-51.0); Hemoglobin 10.4 g/dl (14.0-18.0); Immature Granulocytes # (auto) 0.12 K/uL (0.00-0.02); Immature Granulocytes % (auto) 0.9 %; Lymphocytes # (auto) 1.05 K/uL (1.2-3.4); Lymphocytes % (auto) 8.1 %; Mean Corpuscular Hemoglobin 27.8 pg (25.0-34.0); Mean Corpuscular Hgb Conc 32.4 g/dL (32.0-36.0); Mean Corpuscular Volume 85.8 fL (80.0-100.0); Mean Platelet Volume 10.9 fL (9.4-12.4); Monocytes # (auto) 0.62 K/uL (0.24-0.82); Monocytes % (auto) 4.8 %; Neutrophils # (auto) 11.11 K/uL (1.4-6.5); Neutrophils % (auto) 85.9 %; Platelet Count 219 K/uL (130-400); RDW Coefficient of Variation 12.9 % (11.5-14.5); RDW Standard Deviation 40.1 fL (36.4-46.3); Red Blood Count 3.74 M/uL (4.63-6.08); White Blood Count 12.94 K/ul (4.8-10.8)
[2022-09-18] MEDS: ceFAZolin 2000MG 2,000 MG/15 ML SYR IV SCH (04:36)
[2022-09-18 04:44] LABS: BUN Creatinine Ratio 16.8 (10-20); Calcium 8.5 mg/dl (8.5-10.1); Creatinine Clr Calc Pharmacy 45.1 ml/min; Est GFR (Non-African American) 51.8 ml/min; Potassium 4.5 mmol/L (3.5-5.1)
[2022-09-18] MEDS: D5W AND 1/2NSS 1,000 ML IV SCH (06:51)
--- NOTE | 2022-09-18 07:36 | Critical Care Progress Note ---
Date of Service September 18, 2022 Assessment & Plan (1) Encounter for postoperative care: Plan: Pt is a 76 yo male with PMH of WPW, HLD, CKD, and HTN presenting to the hospital for percutaneous endovascular repair of a 7.4 cm infrarenal AAA. Pt is s/p PEVAR. Infrarenal AAA s/p PEVAR - w/o immediate complications - continue to monitor in ICU for 24 hours WPW - diagnosed 05/2022, follows with Dr. Land - will resume home metoprolol 25 mg daily tomorrow AM HLD - will resume home atorvastatin 20 mg tonight HTN - most recent BP in 120s-130s - will resume home amlodipine 5 mg tomorrow AM w/ metoprolol (2) Aneurysm of abdominal aorta: (3) HTN (hypertension): (4) Chronic kidney disease: (5) WPW (Uahff-Ykhwtsqdx-Xnzin syndrome): Plan Fluids: D5W w/ 1/2 NS at 125 mL/hr Diet: heart healthy Code: full DVT ppx: SCDs Dispo: monitor in ICU, plan to d/c tomorrow pending recovery Admission and Anticipated Discharge Date Admission Date: September 17, 2022 Results & Data Results & Data ([facility]) Vital Signs (Past 12 Hours) Vital Signs Temp Pulse Pulse Resp BP Pulse Ox O2 Del Method 09/18/22 05:30 79 12 98 09/18/22 05:00 79 12 97 Nasal Cannula 09/18/22 05:00 120/56 L 09/18/22 04:30 79 12 98 09/18/22 05:00 36.9 C 09/18/22 04:00 82 13 97 09/18/22 04:00 36.7 C 117/50 L Nasal Cannula 09/18/22 03:00 80 15 98 09/18/22 03:00 134/68 09/18/22 02:00 76 14 99 09/18/22 02:00 137/70 09/18/22 01:20 75 14 98 09/18/22 01:10 80 15 99 09/18/22 01:00 77 13 98 09/18/22 01:00 129/74 09/18/22 00:50 77 16 97 09/18/22 00:40 76 16 97 09/18/22 01:00 82 09/18/22 00:30 76 14 97 01/17/23 00:00 77 13 96 09/18/22 00:00 123/67 09/17/22 23:30 77 16 97 09/17/22 23:03 73 15 95 Nasal Cannula 09/17/22 23:03 108/58 L 09/17/22 23:00 75 14 90 09/17/22 23:00 100/65 09/18/22 00:00 79 09/17/22 22:45 78 13 92 09/17/22 22:30 88 14 96 09/17/22 22:25 153/77 H 09/17/22 22:25 90 21 94 09/17/22 22:15 91 H 17 93 09/17/22 22:00 85 12 92 09/17/22 22:00 154/70 H 09/17/22 21:45 102 H 15 95 09/17/22 21:43 36.7 C 09/17/22 21:30 88 13 95 09/17/22 21:10 156/82 H 09/17/22 21:10 88 16 95 09/17/22 21:00 85 14 94 09/17/22 20:30 91 H 17 95 09/17/22 20:10 152/85 H 09/17/22 20:10 89 19 91 09/17/22 20:00 82 15 95 09/17/22 20:00 151/77 H O2 Flow Rate 09/18/22 05:30 09/18/22 05:00 2 09/18/22 05:00 09/18/22 04:30 09/18/22 05:00 09/18/22 04:00 09/18/22 04:00 2 09/18/22 03:00 09/18/22 03:00 09/18/22 02:00 09/18/22 02:00 09/18/22 01:20 09/18/22 01:10 09/18/22 01:00 09/18/22 01:00 09/18/22 00:50 09/18/22 00:40 09/18/22 01:00 09/18/22 00:30 09/18/22 00:00 09/18/22 00:00 09/17/22 23:30 09/17/22 23:03 2 09/17/22 23:03 09/17/22 23:00 09/17/22 23:00 09/18/22 00:00 09/17/22 22:45 09/17/22 22:30 09/17/22 22:25 09/17/22 22:25 09/17/22 22:15 09/17/22 22:00 09/17/22 22:00 09/17/22 21:45 09/17/22 21:43 09/17/22 21:30 09/17/22 21:10 09/17/22 21:10 09/17/22 21:00 09/17/22 20:30 09/17/22 20:10 09/17/22 20:10 09/17/22 20:00 09/17/22 20:00
[2022-09-18] MEDS: INSULIN ASPART PER UNIT SC SCH (08:02)
[2022-09-18] MEDS ORDERED: NON-FORMULARY MEDICATION (Coenzyme Q10 [Co Q-10] 100 mg Capsule) PO SCH (09:00)
[2022-09-18] MEDS ORDERED: CYANOCOBALAMIN (B-12) 500 MCG TABLET PO SCH (09:00)
[2022-09-18] MEDS ORDERED: METOPROLOL SUCC 25MG EXT REL TAB PO SCH (09:00)
[2022-09-18] MEDS ORDERED: amLODIPine BESYLATE 5 MG TAB PO SCH (09:00)
[2022-09-18] MEDS ORDERED: [UNRECOGNIZED DRUG - OTHER] PO SCH (09:00)
[2022-09-18] MEDS: ICU Protocol for HYPERglycemia SCH (09:35)
--- NOTE | 2022-09-18 10:13 | Billing Data ---
Date of Service September 17, 2022 Coding Level of Care Code INP/OBS CONSULT LVL 3, 45 MIN
--- NOTE | 2022-09-18 11:32 | Surgery Progress Note ---
Date of Service September 18, 2022 Assessment & Plan (1) Aneurysm of abdominal aorta: Plan: Patient post op from PEVAR. He is doing extremely well. Will d/c today. Admission and Anticipated Discharge Date Admission Date: September 17, 2022 Subjective No complaints. No leg or groin pain. Physical Exam Constitutional: WD/WN, vitals as above Respiratory: normal respiratory effort; no respiratory distress Auscultation: lungs clear to auscultation bilaterally Cardiovascular: Rate/Rhythm: regular rate and regular rhythm Vessels: posterior tibial pulses present and dorsalis pedis pulses present Extremities: normal capillary refill Gastrointestinal (Abdomen): Inspection/Auscultation: abdomen not distended Percussion/Palpation: abdomen soft; abdomen nontender Musculoskeletal: no cyanosis or clubbing, extremities motor strength 5/5 Skin: + incision (punctures without complications) Neurologic: CN's II-XI intact bilaterally and moves all extremities Psychiatric: Orientation: alert and oriented x 3 Results & Data ([facility]) Vital Signs (Past 12 Hours) Vital Signs Temp Pulse Pulse Resp BP BP Pulse Ox 09/18/22 08:30 82 22 94 09/18/22 08:00 87 17 96 09/18/22 08:00 147/66 H 09/18/22 07:30 95 H 21 93 09/18/22 07:00 79 17 96 09/18/22 07:00 139/64 09/18/22 08:42 36.9 C 82 22 125/68 94 09/18/22 08:00 82 09/18/22 05:30 79 12 98 09/18/22 05:00 79 12 97 09/18/22 05:00 120/56 L 09/18/22 04:30 79 12 98 09/18/22 05:00 36.9 C 09/18/22 04:00 82 13 97 09/18/22 04:00 36.7 C 117/50 L 09/18/22 03:00 80 15 98 09/18/22 03:00 134/68 09/18/22 02:00 76 14 99 09/18/22 02:00 137/70 09/18/22 01:20 75 14 98 09/18/22 01:10 80 15 99 09/18/22 01:00 77 13 98 09/18/22 01:00 129/74 09/18/22 00:50 77 16 97 09/18/22 00:40 76 16 97 09/18/22 01:00 82 09/18/22 00:30 76 14 97 09/18/22 00:00 77 13 96 09/18/22 00:00 123/67 09/17/22 23:30 77 16 97 09/18/22 00:00 79 O2 Del Method O2 Flow Rate 09/18/22 08:30 Room Air 09/18/22 08:00 Room Air 09/18/22 08:00 09/18/22 07:30 09/18/22 07:00 Room Air 09/18/22 07:00 09/18/22 08:42 09/18/22 08:00 09/18/22 05:30 09/18/22 05:00 Nasal Cannula 2 09/18/22 05:00 09/18/22 04:30 09/18/22 05:00 09/18/22 04:00 09/18/22 04:00 Nasal Cannula 2 09/18/22 03:00 09/18/22 03:00 09/18/22 02:00 09/18/22 02:00 09/18/22 01:20 09/18/22 01:10 09/18/22 01:00 09/18/22 01:00 09/18/22 00:50 09/18/22 00:40 09/18/22 01:00 09/18/22 00:30 09/18/22 00:00 09/18/22 00:00 09/17/22 23:30 09/18/22 00:00
--- NOTE | 2022-09-18 11:34 | Discharge Summary ---
Date of Service September 18, 2022 Admission HPI Per Admitting Provider Mr. Roberson is an elderly male who presents to Dr. Morales's vascular surgery clinic today as a new patient in consultation for an incidentally noted infrarenal abdominal aortic aneurysm. Patient states that his primary care physician retired and he recently switched care to [facility]. He was complaining about some left hip pain, and his new PCP ordered a hip x-ray, which demonstrated a possible infrarenal aneurysm. He was then sent for a CTA to further evaluate. Patient states he had no prior knowledge of this aneurysm, and has no known family history. He is a prior smoker, but states he has not smoked in 30 years. He denies any significant complaints at this time. He specifically denies headache, fever, chest pain, dizziness, shortness of breath, abdominal pain, nausea, vomiting, rest pain, claudication, nonhealing wounds or ulcers, other complaints. Of note the patient is pretty active and fully independent. Admission Exam Per Admitting Provider Constitutional: WD/WN, vitals as above Respiratory: normal respiratory effort; no respiratory distress Auscultation: lungs clear to auscultation bilaterally Cardiovascular: Rate/Rhythm: regular rate and regular rhythm Vessels: posterior tibial pulses present and dorsalis pedis pulses present Extremities: normal capillary refill Gastrointestinal (Abdomen): Inspection/Auscultation: abdomen not distended Percussion/Palpation: abdomen soft; abdomen nontender Musculoskeletal: no cyanosis or clubbing, extremities motor strength 5/5 Skin: + incision (punctures without complicati ons) Neurologic: CN's II-XI intact bilaterally and moves all extremities Psychiatric: Orientation: alert and oriented x 3 Principal Diagnosis AAA Discharge Exam Constitutional WD/WN, vitals as above Respiratory normal respiratory effort; no respiratory distress Auscultation: lungs clear to auscultation bilaterally Cardiovascular Rate/Rhythm: regular rate and regular rhythm Vessels: posterior tibial pulses present and dorsalis pedis pulses present Extremities: normal capillary refill Gastrointestinal (Abdomen) Inspection/Auscultation: abdomen not distended Percussion/Palpation: abdomen soft; abdomen nontender Musculoskeletal no cyanosis or clubbing, extremities motor strength 5/5 Skin + incision (punctures without complications) Neurologic CN's II-XI intact bilaterally and moves all extremities Psychiatric Orientation: alert and oriented x 3 Discharge Data Allergies Allergy/AdvReac Type Severity Reaction Status Date / Time No Known Allergies Allergy Verified 09/17/22 09:43 Consultations 09/17/22 14:43 Consult [employer] Routine Procedures Performed Operation Date: 09/17/22 11:00 Actual Procedures p Percutaneous Endovascular Abdominal Aortic Aneurysm Repair, Mechanical Closure of Bilateral Femoral Arteries(Bilateral) - Richard Morales MD Ordered Studies 09/17/22 07:23 EV AAA repair aorta only Routine US EV guide vascular access Routine Hospital Course (1) Aneurysm of abdominal aorta: Patient post op from [facility]. He is doing extremely well. Will d/c today. Total Time Total Time Spent Total Time Spent (In Minutes): 0 Discharge Plan Discharge Items Patient Disposition: Home - Self-Care Reason For Visit: Abdominal Aortic Aneursym Discharge Diagnosis: AAA Activity: Per Instructions section Non-emergency contact: Surgeon Call non-emergency contact if: your temperature is above 101.5, your wound has increased redness and your wound has increased drainage Follow-up/Referrals: Phi Pino MD [Primary Care Provider] - (Info needed for follow up faxed to [facility]) Diet: Heart Healthy Addtl Attending Provider Instructions: SPECIAL CARE INSTRUCTIONS: Medications: * Continue to take your medications as directed. * You may use Tylenol for pain. Pain medication script will be sent to your pharmacy if the Tylenol isn't working Incision/Puncture Site Care: * You will have an incision or puncture in each of your groins. * there will be small dressings covering your incisions. After you get home, you may remove the dressings and shower - allowing the warm soapy water to run over it. * Be sure to dry the sites well and keep them dry. * DO NOT SOAK IN A TUB/POOL/etc. UNTIL ALL SURGICAL SITES ARE HEALED. DO NOT REMOVE THE GLUE UNTIL THE INCISIONS HEAL. Restrictions: * Limit yourself to wax pot tender activity for the first 2 days. * You may walk and go up and down steps. * Avoid excessive bending or movement at the level of the incisions or punctures for 48 hours. Risks and Possible Complications: * Infection/Drainage/Bleeding - Drainage or bleeding from the in cisions/puncture site should be minimal. If you have excessive bleeding or drainage, call our office ([phone]) right away. * Pain/Numbness - You may experience some mild pain or soreness at your incision sites. You may also have some numbness around the incisions or into the insides of your thighs. Bruising is normal and should resolve within 2 weeks. * Changes in Appetite or Bowel Habits - Mostly related to anesthesia and pain medication, some patients have reported decreased appetite and/or problems with constipation. These symptoms usually improve over a few weeks. Remembering to take an [id number] stool softener, as directed, will help you to avoid constipation. Call our office and seek emergent treatment if you develop: * Fever or chills * Have a temperature greater than 101 degrees F * Any redness or purulent drainage from your incisions or punctures * Severe abdominal, chest or back pain SKIN IRRITATION: * You may experience some redness and/or swelling in the area where radiation was administered. If any skin irritation occurs, please contact your family physician. You will be receiving a call from the Vascular Surgery Nurse after you are discharged. FOLLOW UP VISIT: It is important for you to keep your follow up appointments with your medical provider. Keep any scheduled doctor appointments. Call [phone] to schedule a follow up appointment if one not already s cheduled. Pending Studies at Discharge: No Stand-Alone Forms: My [facility] D-Sight, Smoking Cessation Medications and DC Order Prescriptions: New oxycodone-acetaminophen [Percocet] 5-325 mg tablet 1 tab PO Q6H PRN (Reason: pain) Qty: 20 0RF Continued amlodipine 5 mg tablet 5 mg PO QAM Qty: 30 atorvastatin 20 mg tablet 20 mg PO HS cyanocobalamin (vitamin B-12) 1,000 mcg tablet 1,000 mcg PO QAM coenzyme Q10 [Co Q-10] 100 mg Capsule 100 mg PO QAM ascorbate calcium-bioflavonoid 1,000-200 mg Tablet Extended Release 1 tab PO QAM metoprolol succinate 25 mg Tablet Extended Release 24 Hr 25 mg PO DAILY Discharge Orders: Discharge Order (Routine); Ordered 09/18/22 Ordered By: Richard Raymond/Other Patient Handouts: AAA Surg Post Op, AAA Endovascular Repair Admission Data Admit Date/Time: 09/17/22 11:24 Attending Provider: Richard Morales Admit Provider: Richard Morales Primary Care Provider: Phi Pino Other Providers: Easton Medina ; Kemar Callahan ; Jose Pineda ; Luke Ahn ; Fish Ndiaye ; Tico Oseguera ; Salty James ; Chad Pickering ; Indigo Acharya Other Interventions: Discharge Summary Assessment (RN) Last Done: 09/18/22 08:42
== END 2022-09-18 10:06 | disposition home or self-care (01) | DRG 269 ==
LOC: ASU 09:26 → 1E 11:24